=== PATIENT | female | born 1990 | race American Indian/Alaskan Native ===

== ENCOUNTER 2017-12-22 17:56 | Emergency (ER) | payer OTHER ==
[2017-12-22 18:27] VITALS: O2SAT 100
[2017-12-22] MEDS: Albuterol-Ipratrop 3 mg / 0.5 (3 ml) UD IH SCH ×3 (18:45→19:19)
--- NOTE | 2017-12-22 19:37 | ED PDOC ---
Arrival/HPI - General Historian: Patient - History of Present Illness Time/Duration: Prior to Arrival - General Chief Complaint: Shortness Of Breath Time Seen by Provider: 12/22/17 18:03 - History of Present Illness Narrative History of Present Illness (Text): 12/22/17 19:33 27 F with history asthma presenting with complaints of shortness of breath, cough, itchy throat which started last night. Patient states she was last hospitalized for asthma when she was a child and was never intubated. Patient states however that she frequents the Emergency department when her asthma is not controlled by her home breathing treatment. States she uses breathing treatments up to twice a week. Patient states this current episode was not relieved by her breathing treatment and she therefore decided to come to the Emergency department. Endorses history of father smoking a large amount when she was a child, also states current boyfriend she lives with is a constant smoker. Triggers include foods with fish, pollen, and grass. Denies dizziness, rashes, itchiness, fevers, chills, sick contacts, sore throat, throat swelling, itchy eyes. 12/22/17 20:53 (Carlos A Wong) Past Medical History - Provider Review Nursing Documentation Reviewed: Yes - Cardiac Hx Cardiac Disorders: No - Pulmonary Hx Respiratory Disorders: Yes Hx Asthma: Yes - Neurological Hx Neurological Disorder: No - HEENT Hx HEENT Disorder: No - Renal Hx Renal Disorder: No - Endocrine/Metabolic Hx Endocrine Disorders: No - Hematological/Oncological Hx Blood Disorders: No - Integumentary Hx Dermatological Disorder: No - Musculoskeletal/Rheumatological Hx Musculoskeletal Disorders: No - Gastrointestinal Hx Gastrointestinal Disorders: No - Genitourinary/Gynecological Hx Genitourinary Disorders: No - Psychiatric Hx Psychophysiologic Disorder: No Hx Substance Use: No Family/Social History - Physician Review Nursing Documentation Reviewed: Yes Family/Social History: Other (bronchitis: father) Smoking Status: Never Smoked Hx Alcohol Use: Yes Frequency of alcohol use: Socially Hx Substance Use: No Allergies/Home Meds Allergies/Adverse Reactions: Allergies Fish Containing Products Allergy (Verified 12/22/17 18:22) SWELLING Home Medications: Home Meds Medication Instructions Recorded Confirmed Levonorgestrel-Ethin Estradiol 1 tab PO DAILY 12/22/17 12/22/17 [[id number] Tablet] Review of Systems - Review of Systems Constitutional: Normal. absent: Fatigue, Fevers Eyes: Normal. absent: Vision Changes ENT: Normal. absent: Hearing Changes Respiratory: SOB, Cough, Sputum, Wheezing Cardiovascular: absent: Chest Pain, Palpitations Gastrointestinal: absent: Abdominal Pain, Nausea, Vomiting Genitourinary Female: Normal. absent: Dysuria Skin: absent: Rash, Pruritis, Skin Lesions Neurological: absent: Headache, Dizziness Endocrine: Normal Hemo/Lymphatic: Normal Psychiatric: Normal Physical Exam Vital Signs Reviewed: Yes Temperature: Afebrile Blood Pressure: Normal Pulse: Regular Respiratory Rate: Normal Appearance: Positive for: Well-Appearing, Non-Toxic, Comfortable Pain Distress: None Mental Status: Positive for: Alert and Oriented X 3 - Systems Exam Head: Present: Atraumatic, Normocephalic Pupils: Present: PERRL Extroacular Muscles: Present: EOMI Conjunctiva: Present: Normal Mouth: Present: Moist Mucous Membranes Neck: Present: Normal Range of Motion Respiratory/Chest: Present: Clear to Auscultation, Decreased Breath Sounds ( bilateral lower lobes). No: Wheezes, Rhonchi Cardiovascular: Present: Regular Rate and Rhythm, Normal S1, S2 Abdomen: Present: Tenderness, Distention, Normal Bowel Sounds Upper Extremity: Present: Normal Inspection. No: Edema Lower Extremity: Present: Normal Inspection. No: Edema Neurological: Present: GCS=15, CN II-XII Intact, Speech Normal Skin: Present: Warm, Normal Color. No: Rashes Psychiatric: Present: Alert, Oriented x 3 Vital Signs Temp Pulse Resp BP Pulse Ox 12/22/17 19:20 67 18 121/70 100 12/22/17 18:23 99.1 F 83 17 115/78 100 Medical Decision Making Re-evaluation Time: 21:43 Reassessment Condition: Re-examined, Improved ED Course and Treatment: Patient Seen With Resident: In agreement with resident note which contains more details about the patient. Patient was seen and evaluated with resident. Came up with plan and treatment together. (Josef Kunz) 12/22/17 19:40 Will administer Solu-Medrol and Duonebs and re-assess. 12/22/17 21:42 Patient given benadryl, pepcid, and will be sent home with prescriptions for both as well as prednisone. Patient instructed to follow up with pulmonology and fabric stretcher. (Carlos A Wong) - Medication Orders Current Medication Orders: Discontinued Medications Albuterol/Ipratropium (Duoneb 3 Mg/0.5 Mg (3 Ml) Ud) 3 ml IH Q15M REYNA Stop: 12/22/17 19:16 Last Admin: 12/22/17 19:19 Dose: 3 ml Diphenhydramine HCl (Benadryl) 50 mg PO STAT STA Stop: 12/22/17 20:50 Last Admin: 12/22/17 20:56 Dose: 50 mg Famotidine (Pepcid) 40 mg PO STAT STA Stop: 12/22/17 21:01 Last Admin: 12/22/17 21:41 Dose: 40 mg Methylprednisolone (Solu-Medrol) 125 mg IVP STAT STA Stop: 12/22/17 18:34 Last Admin: 12/22/17 19:00 Dose: 125 mg IVP Administration Document 12/22/17 19:00 [facility] (Rec: 12/22/17 19:00 [facility] [id number]) Charges for Administration # of IVP Administrations 1 Disposition/Present on Arrival - Present on Arrival Any Indicators Present on Arrival: No History of DVT/PE: No History of Uncontrolled Diabetes: No Urinary Catheter: No History of Decub. Ulcer: No History Surgical Site Infection Following: None - Disposition Have Diagnosis and Disposition been Completed?: Yes Disposition Time: 21:20 Patient Plan: Discharge - Disposition Diagnosis: Asthma, Pollen allergies Disposition: HOME/ ROUTINE Condition: GOOD Discharge Instructions (ExitCare): Seasonal Allergies (DC), Asthma, Adult (DC) Additional Instructions: Ms. Lyons, thank you for letting us take care of you today. The emergency medical care you received today was directed at your acute symptoms. If you were prescribed any medication, please fill it and take as directed. It may take several days for your symptoms to resolve. Return to the Emergency Department if your symptoms worsen, do not improve, or if you have any other problems. Please contact your doctor or call one of the physicians/clinics you have been referred to that are listed on the Patient Visit Information form that is included in your discharge packet. Bring any paperwork you were given at discharge with you along with any medications you are taking to your follow up visit. Our treatment cannot replace ongoing medical care by a primary care provider (PCP) outside of the emergency department. Don't forget to establish care with a senior maintenance machinist and fabric stretcher as discussed before. Thank you for allowing the [facility] team to be part of your care today. If you had an X-Ray or CT scan: A Radiologist will review the ED reading if any change in treatment is needed we will contact you. If you had a blood, urine, or wound culture: It will take several days for the results, if any change in treatment is needed we will contact you. If you had an STI test: It will take 48 hours for the results. Please call after 1 week if you have not heard back. Prescriptions: DiphenhydrAMINE [Benadryl] 50 mg PO Q8 PRN #15 cap PRN Reason: Allergy Symptoms Famotidine [Pepcid] 40 mg PO DAILY PRN #5 tablet PRN Reason: Allergy Symptoms Prednisone [Deltasone] 40 mg PO DAILY 4 Days #4 tablet Referrals: Jovanni García DO [Primary Care Provider] - Follow up with primary Forms: [employer] (Chinese)
[2017-12-22 21:47] VITALS: BP 122/82; PULSE 86; RESP 20; TEMP 98
== END 2017-12-22 21:46 | disposition home or self-care (01) ==
LOC: ED 17:56
DX: J45.909 Unspecified asthma, uncomplicated (principal); J30.1 Allergic rhinitis due to pollen
CPT/HCPCS: 96374; 99284; J2930